=== PATIENT | female | born 1985 | race Two or more races ===

== ENCOUNTER 2024-07-05 13:45 | Emergency (ER) | payer MEDICAID, SELFPAY ==
[2024-07-05 13:46] VITALS: BMI 26.5
[2024-07-05 14:09] VITALS: BP 121/76; PULSE 88; RESP 18; TEMP 36.9; O2SAT 98
--- NOTE | 2024-07-05 14:16 | XR_ITS ---
Examination: Complete OB ultrasound greater than 14 weeks Date and time of exam: July 05, 2024 1540 hrs. Indications: Left-sided pelvic pain beginning 2 weeks ago Findings: Viable intrauterine single fetus with single amniotic sac presentation transverse head maternal left Cardiac motion 155 BPM Placenta anterior grade 1 Umbilical cord insertion 3 vessel seen Amniotic fluid: Normal Cervix 5.7 cm Right ovary 2.7 cm arterial flow D2 0.3 cm arterial flow. Composite estimated gestational age based on BPD, head circumference, abdominal circumference, femur length is 18 weeks 1 day Estimated weight 211 g. Survey of intracranial anatomy, spinal anatomy, abdominal anatomy, four-chamber heart performed with no abnormalities identified. Impression: Viable intrauterine gestation transverse presentation.
[2024-07-05 14:42] LABS: Collection Type, Urine Clean Catch
[2024-07-05 14:55] LABS: Basophils % (Auto) 0 % (0-2.5); Eosinophils # (Auto) 0.1 Thou/mm3 (0.0-0.5); Eosinophils % (Auto) 1 % (0-10); Hematocrit 31.4 % (36.0-46.0); Hemoglobin 10.8 g/dL (12.0-16.0); Immature Granulocytes % (Auto) 0 % (0-0); Immature Granulocytes Auto 0.05 Thou/mm3 (0.00-0.00); Lymphocytes # (Auto) 1.2 Thou/mm3 (1.0-4.8); Lymphocytes % (Auto) 11 % (10-50); Mean Corpuscular HGB Conc 34.4 g/dl (31.0-37.0); Mean Corpuscular Hemoglobin 29.2 pg (25.0-35.0); Mean Corpuscular Volume 85 fL (80-100); Monocytes # (Auto) 0.6 Thou/mm3 (0.0-0.8); Monocytes % (Auto) 6 % (0-12); Neutrophils # (Auto) 9.2 Thou/mm3 (1.8-7.7); Neutrophils % (Auto) 83 % (37-80); Nucleated Red Blood Cell % 0 /100 WBC (0); Platelet Count 229 Thou/mm3 (140-440); RDW Standard Deviation 40.1 fL (36.4-46.3); White Blood Count 11.2 Thou/mm3 (3.6-11.0)
[2024-07-05 15:11] LABS: Bacteria,Urine 1+; Bilirubin,Urine Negative (Negative); Blood,Urine Negative (Negative); Clarity,Urine Turbid (Clear/Hazy); Color,Urine Yellow (Lt Yel-Yel); Culture Indicated,Urine Contaminated; Glucose, Urine Negative (Negative); Hyaline Casts,Urine < 1 /hpf (0-1); Ketones,Urine 1+ (Negative); Leukocyte Esterase,Urine Negative (Negative); Nitrite,Urine Negative (Negative); PH,Urine 6.5 (5.0-7.0); Protein,Urine 1+ (Neg - Trace); RBC,Urine 8 /hpf (0-3); Specific Gravity,Urine 1.027 (1.001-1.035); Squamous Epithelial Cell,Urine 22 /hpf (0-5); Urobilinogen,Urine Negative mg/dL (0.0-1.0); WBC,Urine 7 /hpf (0-5)
[2024-07-05 15:31] LABS: Alanine Aminotransferase 16 U/L (10-49); Albumin, Serum 4.1 gm/dL (3.5-5.0); Albumin/Globulin Ratio 1.3 (1.2-2.2); Alkaline Phosphatase 46 U/L (46-116); Anion Gap 10 (7-16); Aspartate Amino Transferase 23 U/L (0-34); BUN/Creatinine Ratio 13 Ratio (12-20); Bilirubin,Total 0.3 mg/dL (0.3-1.2); Blood Urea Nitrogen 8 mg/dL (9-23); Calcium 9.6 mg/dL (8.3-10.6); Calcium (Corrected) 9.6 mg/dL (8.5-10.1); Carbon Dioxide 21.6 mMol/L (20.0-31.0); Chloride 102 mMol/L (98-107); Creatinine (Component) 0.6 mg/dL (0.6-1.3); Estimated Creatinine Clearance 110.9 mL/min (>60); Globulin 3.2 gm/dL (2.3-3.5); Glucose 99 mg/dL (74-106); Osmolality,Calculated 266 (275-295); Sodium 134 mMol/L (136-145); Total Protein 7.3 gm/dL (5.7-8.2); eGFR > 60 See Note
[2024-07-05 15:50] LABS: Beta HCG,Quantitative 27044 mIU/mL (<5.0)
[2024-07-05 15:51] VITALS: BP 116/77; PULSE 96; RESP 18; TEMP 36.8; O2SAT 99
--- NOTE | 2024-07-05 16:37 | EDNOTE_ITS ---
ED Female Urogenital RME/HPI General Chief complaint: Urogenital-Female Stated complaint: R LOWER ABD PAIN WITH VAGINAL BLEED; 16 WEEKS OB Time Seen by Provider: 07/05/24 13:59 Arrival date/time: 07/05/24 13:45 38-year-old female approximately 16 weeks presents to the emergency department today stating she has not felt any movement. Patient reports no fever nausea or vomiting no headache dizziness weakness Limitations: no limitations Related Data Allergies Allergy/AdvReac Type Severity Reaction Status Date / Time No Known Allergies Allergy Verified 07/05/24 13:49 Review of Systems Review of Systems Systems Reviewed: All systems reviewed, normal except as documented Constitutional Constitutional: Reports system reviewed and no additional complaints, except as documented, Denies fever(s) and Denies headache(s) Eyes Eyes: Reports system reviewed and no additional complaints, except as documented and Denies blurry vision ENT Ears, Nose, Mouth, and Throat: Reports system reviewed and no additional complaints, except as documented, Denies headache(s), Denies nasal congestion and Denies nasal discharge Cardiovascular Cardiovascular: Reports system reviewed and no additional complaints, except as documented, Denies chest pain and Denies dyspnea Respiratory Respiratory: Reports system reviewed and no additional complaints, except as documented, Denies chest congestion, Denies cough and Denies dyspnea Gastrointestinal Gastrointestinal: Reports system reviewed and no additional complaints, except as documented and Denies abdominal pain Genitourinary Genitourinary: Reports system reviewed and no additional complaints, except as documented and Reports abnormal vaginal bleeding Integumentary/Breasts Skin/Breast: Reports system reviewed and no additional complaints, except as documented and Denies rash Neurologic Neurologic: Reports system reviewed and no additional complaints, except as documented, Reports as per HPI and Denies headache(s) Past Medical History Past Medical History CARDIAC: Negative Congestive Heart Failure RESPIRATORY: Negative Chronic Obstructive Pulmonary Disease (COPD) GENITOURINARY: Negative Renal Disease ENDOCRINE: Negative Diabetes Mellitus Type 1 or Diabetes Mellitus Type 2 Social History SMOKING STATUS: Light (< 1 pack/day) ED Exam General Limitations: Present no limitations General appearance: Present alert and in no apparent distress Head Head exam: Present atraumatic, normocephalic and normal inspection Eye Eye exam: Present normal appearance, PERRL and EOMI; Absent conjunctival injection ENT ENT exam: Present normal exam, normal oropharynx and mucous membranes moist Neck Neck exam: Present normal inspection, full ROM and trachea midline Chest Chest inspection: Present normal inspection and symmetric chest wall rise Respiratory Respiratory exam: Present normal lung sounds bilaterally; Absent respiratory distress, wheezes, stridor, accessory muscle use or prolonged expiratory phase Cardiovascular Cardiovascular exam: Present regular rate, normal rhythm and normal heart sounds Abdominal Exam Abdominal exam: Present soft and normal bowel sounds; Absent distention, tenderness, guarding, rebound or rigidity Extremities Exam Extremities exam: Present normal inspection and full ROM Back Exam Back exam: Present normal inspection and full ROM Neurological Exam Neurological exam: Present alert, oriented X3, CN II-XII intact and normal gait Psychiatric Psychiatric exam: Present normal affect and normal mood Skin Skin exam: Present warm, dry, intact and normal color Course Quality Measures none Orders Category Date Time Status US OB >= 14 weeks Fetus Stat Exams 07/05/24 14:16 Completed ABO/RH Type Stat Lab 07/05/24 14:39 Completed Beta HCG,Quantitative Stat Lab 07/05/24 14:39 Completed CBC Stat Lab 07/05/24 14:39 Completed Comprehensive Metabolic Panel Stat Lab 07/05/24 14:39 Completed UA, C/S IF [Urinalysis, C/S if Indicated] Stat Lab 07/05/24 14:37 Completed Vital Signs Vital signs: Vital Signs Temperature 98.5 F 07/05/24 14:09 Pulse Rate 88 07/05/24 14:09 Respiratory Rate 18 07/05/24 14:09 Blood Pressure 121/76 07/05/24 14:09 Pulse Oximetry (%) 98 07/05/24 14:09 Oxygen Delivery Method Room Air 07/05/24 14:09 O2 saturation 98% room air within the limits Urogenital - Female MDM Narrative MDM Narrative:: 38-year-old female approximately 16 weeks presents to the emergency department today stating she has not felt any movement. Patient reports no fever nausea or vomiting no headache dizziness weakness On exam patient well-appearing patient does not appear ill or toxic patient reports no active bleeding no discharge no dysuria Lab work as well as ultrasound obtained Patient appears to have viable at this time Lab work is unremarkable Patient instructed to follow-up with CLOTH COVERER soon as possible for emergent concerns return immediately Patient data External records reviewed:: [facility] previous records Clinical information provided by:: patient Social determinants that could affect healthcare access:: none Patient has the following chronic illnesses:: None How is presenting disease/condition affected by chronic disease/condition?: no chronic disease Evaluation data The following diagnostics were reviewed and interpreted by me:: lab results and radiology exam(s) Lab and/or radiology exams considered but not ordered:: Labs and radiology obtained Interpretation Summary: Reviewed by me Medications / Prescriptions Medications or Prescriptions considered but not ordered:: Given no meds Medication administrations:: Given no meds Consultations Consultation(s) initiated? (list below): No Diagnosis Urogenital Female Differential Diagnosis: urinary tract infection and cystitis Most likely diagnosis given after review of the tests above:: Pelvic pain Admission Indicated Admission indicated?: not indicated Admission Request Was there a request for admission?: No Disposition Plan Disposition Plan: Discharge Discharge Attestation Discharge Attestation: The patient and all family members were given an opportunity to ask questions and understood the discharge instructions. Discharge instructions specifically effects, indications for sooner follow up or return to the emergency department, and the expected course of current diagnosis. Patient condition: Stable Discharge Plan Plan Patient Disposition: HOME (Self Care) Disposition Comment: Stable Problem List Clinical Impression: Pelvic pain affecting Patient/Caregiver Discharge Instructions Education Materials: Medicine for Pain Additional Instructions: Please follow up with your CLOTH COVERER in the next 24-48hrs for any worsening symptoms return here immediately Print Language: Korean Stand Alone Forms: Suzie Award Info., Patient Portal Info Letter PA/KAPIL Supervising Physician BIJU/KAPIL Supervising Physician: Dr. broussard
== END 2024-07-05 17:08 | disposition home or self-care (01) ==
LOC: SERX 17:31
PROVIDERS: Nurse Practitioner Primary Care; Emergency Provider Emergency Medicine
DX: O99.891 Other specified diseases and conditions complicating pregnancy (principal); R10.2 Pelvic and perineal pain; Z3A.16 16 weeks gestation of pregnancy
CPT/HCPCS: 36415; 76805; 80053; 81001; 84702; 85025; 86900; 86901; 99284

== ENCOUNTER 2024-11-12 10:59 | Outpatient (AMB) | payer MEDICAID, SELFPAY ==
--- NOTE | 2024-11-12 11:24 | AMB.OBINITIA ---
Vital Signs 11/12/24 11:40 Height 1.57 m Height Method Stated Weight 76.204 kg Weight Measurement Method Standing Scale BMI 30.9 BP 100/64 Blood Pressure Source Automatic Cuff Blood Pressure Location Right Upper Arm Position Sitting Respiration 17 Pulse 73 Pulse Source Monitor Temp 97.7 F Temp Source Temporal Artery Scan Pulse Oximetry (%) 97 Oxygen Delivery Method Room Air Allergies/Home Meds Allergies & Medications Allergies No Known Allergies Allergy (Verified 11/12/24 11:43) Medication Reconciliation No Known Home Medications 11/12/24 [History Confirmed 11/12/24] Intake Visit Data Collection New Patient or Established: Established Patient (seen at [facility] within 3 years) Reason for Visit:: OBI TRANSFER Seen by Clinical Staff ONLY (RN/MA): No Volleyball Player Required: No Do You Feel Safe at Home: Yes Authorities Contacted: N/A PCP or OBGYN visit in last 3 months: Yes Date of Last PCP or OBGYN visit: 07/05/24 Hx Now: Yes Are you currently on any form of Control: No Pain Present Currently: No Pain Scale Used: Cantor-Torres/Numerical Pain scale:: 0 Smoking Status Smoking Status: Light (< 1 pack/day) Cessation Counseling Provided: LUCINDA was advised that quitting smoking is the single most important factor to protect the health of themselves and their family. Discussed the benefits of quitting smoking with patient. Encouraged patient to quit smoking and provided Cessation assistance materials and resources. Tobacco Use: Cigarette Years smoked: 5 Are you interested in Quitting?: Yes Would you like additional Smoking Cessation Counseling?: Yes Questionnaires Covid-19 Vaccine Questionnaire Has patient been vacinated for Covid-19 Have you been vacinated for Covid-19: No PHQ-9 PHQ-2 Over the last 2 weeks, how often have you been bothered by any of the following problems? 1. Little interest or pleasure in doing things: not at all 2. Feeling down, depressed, or hopeless: not at all Total score: 0 PHQ-9 3. Trouble falling or staying asleep, or sleeping too much: Not at all 4. Feeling tired or having little energy: Not at all 5. Poor appetite or overeating: Not at all 6. Feeling bad about yourself - or that you are a failure or have let yourself or your family down: Not at all 7. Trouble concentrating on things, such as reading the newspaper or watching television: Not at all 8. Moving or speaking so slowly that other people could have noticed? - Or the opposite - being so fidgety or restless that you have been moving around a lot more than usual: not at all 9. Thoughts that you would be better off or of hurting yourself in some way: Not at all Total score: 0 If you checked off any problems, how difficult have these problems made it for you to do your work, take care of things at home, or get along with other people?: not difficult at all Source: Developed by Drs. Cipriano Blanchard, Cherise Morrison, Gonzalo Dixon and colleagues, with an educational zora from [employer] Depression screen completed yes Social History Living Situation History Marital Status: Single Lives With: Family Housing: House Tobacco History Smoking Status: Light (< 1 pack/day) Second Hand Smoke Exposure: No Alcohol History Alcohol Intake: Never Domestic Abuse History Do You Feel Safe at Home: Yes History of Present Illness HPI Narrative Lucinda Burgess is a 38-year-old Citizen Of [place]-speaking female transferring care at 36 weeks and 5 days gestation. She has a history of 3 previous sections, including one resulting in stillbirth, and is currently being treated for gestational diabetes. Patient reports adhering to a diet-controlled regimen for her gestational diabetes, monitoring blood sugar levels four times daily, and denies need for medication or insulin. She mentions experiencing movement and had an ultrasound today estimating weight at 7 pounds 10 ounces (3446 grams). Patient expresses concern about her previous loss at approximately 39 weeks gestation, where she was sent for a scheduled section but upon return, the baby was not breathing. This experience has heightened her anxiety about the current . Obstetric history includes G4 T2 L2, with current at 33 weeks 1 day based on LMP and ultrasound, estimated due date December 05, 2024. Previous pregnancies include 3 sections, with the 2nd resulting in stillbirth. Medical history includes gestational diabetes, currently diet-controlled. Surgical history includes three sections. Patient is taking vitamins and is immune to rubella. Review of systems positive for increased appetite. Diagnostic Test Results and Labs: - Ultrasound (07/05/2024): Consistent with 18 weeks and 7 days gestation, NAIMA 12/05/2024 - Urine culture (08/05/2024): Positive (coagulase-negative staph) - NiPT (08/06/2024): Negative - Hepatitis B (08/06/2024): Negative - Antibody screen (08/06/2024): Negative - HIV (08/06/2024): Negative - RPR (08/06/2024): Non-reactive - Rubella (08/06/2024): Immune - Blood type (08/06/2024): AB positive - CBC (08/06/2024): Hemoglobin 10.4 g/dL, Platelets 245 - Detailed anatomy ultrasound (09/17/2024): Within normal limits - Cervical length (09/17/2024): 5.13 cm - position (09/17/2024): Breech - Uterus and adnexa (09/17/2024): Normal - Placenta (09/17/2024): Anterior fundal, normal appearance without suspicion for accreta - Ultrasound (11/12/2024): Estimated weight 3446 grams (7 pounds 10 ounces), heart rate 135 bpm CONTRACTS ADVISOR: Past Medical History Past Medical History: No Hx Renal Disease, No Hx Diabetes Mellitus Type 1 and No Hx Diabetes Mellitus Type 2 OB Initial Visit Menstrual History Menstrual reliability: definite Flow: normal Menstrual regularity: regular Monthly: Yes Age at menarche: 12 On control pills at conception: No OB History : 4 Para: 2 Hx # Pregnancies: 0 Hx Total # of Abortions (Spontaneous & Elective): 1 # of Living Children: 2 Delivery History 1st : Child's name: PACO ROTHMAN date: 10/21/00 sex: male Gestational age at delivery (weeks): 39 Delivery type: weight (lbs): 3175.147 g History of depression before or after : No 2nd : Child's name: NATHANAEL ROTHMAN date: 01/23/10 sex: female Gestational age at delivery (weeks): 38 Delivery type: weight (lbs): 3175.147 g History of depression before or after : Yes Infection History & Risk Evaluation History of STDs: none HIV risk evaluation: low risk Hepatitis B risk evaluation: low risk Patient or partner has history of Genital Herpes: No Varicella/chicken pox status: unknown Genetic Screening & History Genetic Screening/Teratology Counseling - Includes patient, baby's father, or anyone in either family with: 1. Patient's age 35 years or older as of estimated date of delivery: Yes 2. Thalassemia (Indonesian, Guamanian, Mediterranean, or Background); MCV less than 80: No 3. Neural Tube Defect (Meningomyelocele, Spina Bifida, or Anencephaly): No 4. Congenital Heart Defect: No 5. Down Syndrome: No 6. Santi-Sachs (Ashkenazi Scientologist, Cajun, Hungarian [place]): No 7. Nikita Disease (Ashkenazi Scientologist): No 8. Familial Dysautonomia (Ashkenazi Scientologist): No 9. Sickle Cell Disease or Trait (): No 10. Hemophilia or other blood disorders: No 11. Muscular Dystrophy: No 12. Cystic Fibrosis: No 13. Gove's Chorea: No 14. Mental Retardation/Autism: No 15. Other inherited genetic or chromosomal disorder: No 16. Maternal Metabolic Disorder (EG,TYPE 1 Diabetes, PKU): No 17. Patient or baby's father had a child with defects not listed above: No 18. Recurrent loss or a stillbirth: No 19. Medications (including supplements, vitamins, herbs or otc drugs)/illicit/recreational drugs/alcohol since last menstrual period: No 20. Any other: No Infection History 1. Live with someone with TB or exposed to TB: No 2. Rash or viral illness since last menstrual period: No 3. Hepatitis B,C: No Other (see comments) Source: [employer] Exam General General Appearance: alert, in no apparent distress and healthy appearing Head Head exam: atraumatic Neck Neck exam: Present normal inspection and trachea midline Chest Chest inspection: Present normal inspection and symmetric chest wall rise External exam: Present normal external exam; Absent tenderness Neuro Neurological exam: Present oriented X3 Psych Psychiatric exam: Present normal affect and normal mood Office Procedures OB Clinic LOC & Office Proc's Nursing/Assessment Patient Status: Established Patient OB Clinic Nursing Assessment: Medication Reconciliation, Update PMH in EMR and Vital Signs OB Clinic Coordination of Care: Complex Care and Chronic Disease 1-5, Consent,records obtained, informed consent, Education Simp Pt/Fam and Staff clarify orders Special Needs: Heart tones Established Patient Charge Established Patient Point Assignment: 115 Established Patient Point Charge: EP Level 3 (80-115) Assessment & Plan Diagnosis / Problem List (1) Supervision of high risk , unspecified, third trimester: Status: Acute (2) Maternal care for low transverse scar from previous delivery: Status: Acute (3) History of stillbirth in currently patient: Status: Acute Plan , 36 weeks and 5 days gestation: - Patient is 38-year-old at 36 weeks and 5 days gestation. - History significant for 3 prior sections and one stillbirth at 39 weeks. - Recent maternal- consult showed normal anatomy survey with cervical length of 5.13 cm. - Fetus in breech presentation with normal uterus, adnexa, and anterior fundal placenta. - Recent ultrasound estimates weight at 3446 grams (7 pounds 10 ounces). - Schedule section for 11/21/2024 or 11/22/2024 (38 weeks gestation). - Initiate twice weekly monitoring at the hospital (non-stress test and ultrasound). - Continue weekly office visits. - Patient to perform kick counts 3 times daily. - Instruct patient to present to hospital immediately for decreased movement. - Follow up in 1 week. Gestational diabetes mellitus: - Patient managing gestational diabetes with diet control. - Recent blood glucose log shows fasting values ranging from 86-103 mg/dL. - Continue current diet control measures. - Reinforce importance of portion control and avoiding sweet foods. - Encourage regular physical activity as tolerated. - Continue home blood glucose monitoring 4 times daily. - Review blood glucose log at next visit. Advanced maternal age: - Patient is 38 years old, classified as advanced maternal age. - Continue close monitoring of . - Addressed through management of other -related issues.
[2024-11-12 11:40] VITALS: BP 100/64; PULSE 73; RESP 17; TEMP 36.5; O2SAT 97; BMI 30.9
== END 2024-11-12 11:59 | disposition home or self-care (01) ==
LOC: HODSOBC 10:59
PROVIDERS: Supervising Provider Obstetrics & Gynecology; Visit Provider Obstetrics & Gynecology
DX: O09.523 Supervision of elderly multigravida, third trimester (principal); O09.293 Supervision of pregnancy with other poor reproductive or obstetric history, third trimester; O34.211 Maternal care for low transverse scar from previous cesarean delivery; O24.410 Gestational diabetes mellitus in pregnancy, diet controlled; O99.333 Smoking (tobacco) complicating pregnancy, third trimester; Z3A.36 36 weeks gestation of pregnancy; F17.210 Nicotine dependence, cigarettes, uncomplicated; Z71.6 Tobacco abuse counseling
CPT/HCPCS: 99213; G0463

== ENCOUNTER 2024-11-17 13:39 | Outpatient (AMB) | payer MEDICAID, SELFPAY ==
[2024-11-17 13:59] VITALS: BP 106/70; PULSE 83; RESP 17; TEMP 36.3; O2SAT 96; BMI 30.8
--- NOTE | 2024-11-17 13:59 | OBCLNT_ITS ---
Vital Signs 11/17/24 13:59 Height 1.57 m Height Method Measured Weight 75.92 kg Weight Measurement Method Standing Scale BMI 30.8 BP 106/70 Blood Pressure Source Automatic Cuff Blood Pressure Location Right Upper Arm Position Sitting Respiration 17 Pulse 83 Pulse Source Monitor Temp 97.4 F Temp Source Temporal Artery Scan Pulse Oximetry (%) 96 Oxygen Delivery Method Room Air Allergies/Home Meds Allergies & Medications Allergies No Known Allergies Allergy (Verified 11/17/24 14:01) Medication Reconciliation No Known Home Medications 11/12/24 [History Confirmed 11/17/24] Intake Visit Data Collection New Patient or Established: Established Patient (seen at [facility] within 3 years) Reason for Visit:: OBC Consent obtained for Telemed Visit: No Seen by Clinical Staff ONLY (RN/MA): No Office Manager Receptionist Required: No Do You Feel Safe at Home: Yes Authorities Contacted: N/A PCP or OBGYN visit in last 3 months: Yes Date of Last PCP or OBGYN visit: 11/12/24 Hx Now: Yes Are you currently on any form of Control: No Pain Present Currently: Yes Pain Location: Abdomen Pain scale:: 4 Smoking Status Smoking Status: Light (< 1 pack/day) Cessation Counseling Provided: LUCINDA was advised that quitting smoking is the single most important factor to protect the health of themselves and their family. Discussed the benefits of quitting smoking with patient. Encouraged patient to quit smoking and provided Cessation assistance materials and resources. Tobacco Use: Cigarette Years smoked: 10 Are you interested in Quitting?: Yes Would you like additional Smoking Cessation Counseling?: Yes Questionnaires Covid-19 Vaccine Questionnaire Has patient been vacinated for Covid-19 Have you been vacinated for Covid-19: No PHQ-9 PHQ-2 Over the last 2 weeks, how often have you been bothered by any of the following problems? 1. Little interest or pleasure in doing things: not at all PHQ-9 8. Moving or speaking so slowly that other people could have noticed? - Or the opposite - being so fidgety or restless that you have been moving around a lot more than usual: not at all Source: Developed by Drs. Cipriano Blanchard, Cherise Morrison, Gonzalo Dixon and colleagues, with an educational zora from [employer]. 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 Patient has a history of prior delivery. Patient reports contractions starting from upper abdomen and pulling down, occurring occasionally. Reports good movement. No mention of leakage of fluid or vaginal bleeding. Denies NAILS, VC, and epigastric pain. - Lucinda Burgess is a 38-year-old female at 37 weeks and 3 days gestation presenting for a visit. - Patient is scheduled for a repeat on November 26, 2024 at 7:30 AM. - Reports active movement. - Denies contractions or other issues. - Describes recent symptoms: - Sharp, pulling sensations in lower abdomen - Occurs at night - Improves with rest - Experienced for the past 2 days - No reported changes in overall health status or functioning. Care OB Visit Log OB Flowsheet Initial Weight: Not Recorded Date -?-?-?-?-?-?-?-?-?-?-?-?- EGA Weight BP Alb Glu CTX Pres Fundal ht FHR Mov Dilation Station Effacement Hx Notes Visit Note 11/12/24 -?-?-?-?-?-?-?-?-?-?-?-?- 36w 5d 76.204 kg 100/64 36 135 active at 36w5d, NAIMA 12/05/24. Transfer of care. Hx 3 prior C/S, 1 stillbirth at 39w. GDM diet-controlled (fasting BG 86-103). Reports good FM. Current US shows EFW 3446g (7lb 10oz), breech presentation. FHR 135 Gabriel edule C/S 11/21 or 11/22/24 (38w), BIW NST/US at hospital, weekly visits, kick counts TID, continue diet control for GDM, FU 1 week. Precautions for decreased FM reviewed. 11/17/24 -?-?-?-?-?-?-?-?-?-?-?-?- 37w 3d 75.92 kg 106/70 occasional cephalic 38 141 active No CTX/LOF/VB, good FM. Reports sharp pulling sensations at night x2 days, improve with rest, possibly prodromal CTX. FHR 141. Scheduled C/S for 11/26 at 7:30 AM; NPO after 10 PM, check in 5:30 AM via ER gate. No further appts; advised L&D eval if symptoms worsen NAIMA Calculator Estimated Delivery Date Method Current WG Current Estimate 12/05/24 Ultrasound #1 37w 3d Other Estimates 01/01/25 LMP (Certain) 33w 4d Specific Issue/Plans Diagnostic Test Results and Labs: - Ultrasound (07/05/2024): Consistent with 18 weeks and 7 days gestation, NAIMA 12/05/2024 - Urine culture (08/05/2024): Positive (coagulase-negative staph) - NiPT (08/06/2024): Negative - Hepatitis B (08/06/2024): Negative - Antibody screen (08/06/2024): Negative - HIV (08/06/2024): Negative - RPR (08/06/2024): Non-reactive - Rubella (08/06/2024): Immune - Blood type (08/06/2024): AB positive - CBC (08/06/2024): Hemoglobin 10.4 g/dL, Platelets 245 - Detailed anatomy ultrasound (09/17/2024): Within normal limits - Cervical length (09/17/2024): 5.13 cm - position (09/17/2024): Breech - Uterus and adnexa (09/17/2024): Normal - Placenta (09/17/2024): Anterior fundal, normal appearance without suspicion for accreta - Ultrasound (11/12/2024): Estimated weight 3446 grams (7 pounds 10 ounces), heart rate 135 bpm Exam General General Appearance: alert, in no apparent distress and healthy appearing Head Head exam: atraumatic Neck Neck exam: Present normal inspection and trachea midline Chest Chest inspection: Present normal inspection and symmetric chest wall rise External exam: Present normal external exam; Absent tenderness Neuro Neurological exam: Present oriented X3 Psych Psychiatric exam: Present normal affect and normal mood Office Procedures OB Clinic LOC & Office Proc's Nursing/Assessment Patient Status: Established Patient OB Clinic Nursing Assessment: Medication Reconciliation, Update PMH in EMR and Vital Signs OB Clinic Coordination of Care: Complex Care and Chronic Disease 1-5, Consent,records obtained, informed consent, 4+ Authorizations needed, Lab and Imaging orders and Results/Orders obtained Special Needs: Heart tones Established Patient Charge Established Patient Point Assignment: 135 Established Patient Point Charge: EP Level 4 (120-155) Assessment & Plan Diagnosis / Problem List (1) History of stillbirth in currently patient: Status: Acute (2) Supervision of high risk , unspecified, third trimester: Status: Acute (3) Maternal care for low transverse scar from previous delivery: Status: Acute Plan Problem List - at 37 weeks and 3 days - Scheduled repeat section - Intermittent contractions Assessment 38-year-old female at 37 weeks and 3 days gestation presenting for visit. Patient reports intermittent sharp, pulling sensations in the lower abdomen, particularly at night, which may indicate possible contractions. movement is present and normal. heart rate is 141 bpm, which is within normal range. No reported persistent contractions or other concerning symptoms at this time. Patient is scheduled for repeat section on November 26 at 38 weeks and 4 days gestation. Plan - Scheduled for on November 26 at 7:30 AM - Patient to check in at 5:30 AM on the day of surgery - Enter through air gate for registration - No food or drink after 10 PM the night before surgery - If experiencing persistent pulling sensations or contractions, patient should come to labor and delivery for evaluation - No further appointments scheduled; next encounter will be at the hospital for - Post-operative follow-up appointment to be scheduled after the 1. Progress Reviewed gestational age, growth, and heart rate. Planned frequent visits (every 2 weeks until 36 weeks, then weekly). 2. Instructed patient to monitor movements and report decreases imme diately. 3. Testing Counseled on routine third-trimester labs per guidelines. Discussed potential need for ultrasound or monitoring based on risk factors. 4. Preeclampsia Precaution Educated on preeclampsia signs: severe headache, vision changes, right upper quadrant pain, sudden swelling. Advised urgent reporting of symptoms and discussed blood pressure monitoring if high risk. 5. Labor Precautions Reviewed labor signs: regular contractions, pelvic pressure, back pain, bleeding, or fluid leakage. Instructed to seek immediate care for these symptoms. 6. Lifestyle and Delivery Preparation Reinforced vitamins, nutrition, and safe activity. Discussed plan, pain management, and . Advised on labor preparation (e.g., hospital bag) and expectations. 7. Psychosocial Support Assessed emotional well-being and offered resources for mental health or parenting support.
== END 2024-11-17 14:05 | disposition home or self-care (01) ==
LOC: HODSOBC 13:39
PROVIDERS: PCP Obstetrics & Gynecology; Referring Provider Obstetrics & Gynecology; Supervising Provider Obstetrics & Gynecology; Visit Provider Obstetrics & Gynecology
DX: O09.523 Supervision of elderly multigravida, third trimester (principal); O09.293 Supervision of pregnancy with other poor reproductive or obstetric history, third trimester; O34.211 Maternal care for low transverse scar from previous cesarean delivery; Z3A.37 37 weeks gestation of pregnancy; O99.333 Smoking (tobacco) complicating pregnancy, third trimester; F17.210 Nicotine dependence, cigarettes, uncomplicated; Z71.6 Tobacco abuse counseling
CPT/HCPCS: 99214; G0463

== ENCOUNTER 2024-11-26 09:44 | Inpatient (IN) | payer MEDICAID, SELFPAY ==
[2024-11-26] VITALS (42 sets, daily range): BP systolic 0–123; BP diastolic 0–79; PULSE 60–106; RESP 12–23; TEMP 36.5–36.8; O2SAT 86–100; BMI 30.3
[2024-11-26] MEDS: RINGERS LACTATED 1000 ML 1,000 ML 100 ML IV ×2 (09:55→12:05)
[2024-11-26 10:58] LABS: Basophils # (Auto) 0.0 Thou/mm3 (0.0-0.2); Basophils % (Auto) 0 % (0-2.5); Eosinophils # (Auto) 0.1 Thou/mm3 (0.0-0.5); Eosinophils % (Auto) 1 % (0-10); Hematocrit 33.3 % (36.0-46.0); Hemoglobin 11.5 g/dL (12.0-16.0); Immature Granulocytes Auto 0.03 Thou/mm3 (0.00-0.00); Lymphocytes # (Auto) 1.1 Thou/mm3 (1.0-4.8); Lymphocytes % (Auto) 14 % (10-50); Mean Corpuscular HGB Conc 34.5 g/dl (31.0-37.0); Mean Corpuscular Hemoglobin 30.2 pg (25.0-35.0); Mean Corpuscular Volume 87 fL (80-100); Monocytes # (Auto) 0.7 Thou/mm3 (0.0-0.8); Monocytes % (Auto) 9 % (0-12); Neutrophils # (Auto) 6.0 Thou/mm3 (1.8-7.7); Neutrophils % (Auto) 76 % (37-80); Nucleated Red Blood Cell # 0.00 Thou/mm3 (0.00-0.00); Nucleated Red Blood Cell % 0 /100 WBC (0); Platelet Count 169 Thou/mm3 (140-440); RDW Standard Deviation 42.3 fL (36.4-46.3); Red Blood Count 3.81 Miln/mm3 (4.00-5.20); White Blood Count 7.9 Thou/mm3 (3.6-11.0)
--- NOTE | 2024-11-26 11:05 | ESHP_ITS ---
Documentation for date of: 11/26/24 OB Labor/Induct. HPI History of Present Illness Chief complaint: Repeat : 4 pregnancies: 0 Living children: 2 History of Abortions: Spontaneous and Elective: 1 History of sections: Yes (x4) NAIMA: 12/05/24 History of present illness: Lucinda Burgess is a 38-year-old female, 4, para 2102, presenting for a repeat scheduled section at 38 weeks and 5 days gestation. She has a history of three previous sections and a prior stillbirth at 39 weeks. The patient started care at [facility]. Her risk factors include previous sections and gestational diabetes. On presentation, Lucinda reports no complaints. She notes good movement and denies any leakage of fluid or vaginal bleeding. Her current is at 38 weeks and 5 days gestation, and she is scheduled for a repeat section prior to 39w due to GDM and history of IUFD at 39w. She has a history of 3 previous sections and a stillbirth at 39 weeks. The patient has gestational diabetes in the current . Her surgical history includes three previous sections. Patient denies fever, chills, fatigue, vaginal bleeding, and leakage of fluid. Labs Labs: Positive: Rubella Titre, Negative: RPR, Hepatitis B, HIV and Group Beta Strep and Unknown: Chlamydia, Gonorrhea, Herpes Type 1, Herpes Type 2 and Covid-19 Past Medical History Surgical History SURGICAL: Positive Section (x4) Meds Home Medications and Allergies Home Medications ?Medication ?Instructions ?Recorded ?Confirmed ?Type aspirin 81 mg tablet,delayed 81 mg PO QDAY 11/26/24 History release ferrous sulfate 325 mg (65 mg 325 mg PO QDAY 11/26/24 11/26/24 History iron) tablet (FeroSul) vit no.95-ferrous 1 tab PO QDAY 11/26/2411/16 History fumarate 28 mg-folic acid 800 mcg tablet () Allergies Allergy/AdvReac Type Severity Reaction Status Date / Time No Known Allergies Allergy Verified 11/26/24 11:06 OB Exam Physical Exam Vital signs: Pulse BP Pulse Ox 104 H 0/0 L 97 11/26/24 10:11 11/26/24 10:42 11/26/24 11:05 Constitutional Constitutional: no acute distress Routine HEENT Exam Head: Present normocephalic and atraumatic Eye: Present EOMI and PERRL ENT: Present mucous membranes moist Routine Neck Exam Neck: Present supple and trachea midline Routine Cardiovascular Exam Cardiovascular: Present RRR Routine Abdominal Exam Abdominal: Present soft and normoactive bowel sounds Detailed Labor and Delivery Exam Baseline heart rate: 145 monitor accelerations: 15x15 monitor decelerations: None 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 (6-10) Routine Extremities Exam Extremities: Present full ROM Routine Skin Exam Skin: Present intact, dry and warm Routine Neurological Exam Neurological: Present alert, oriented X3 and CN II-XII intact Routine Psychiatric Exam Psychiatric: Present normal affect and normal thought process OB Results Labs 11/26/24 10:20 OB Assessment & Plan Assessment and Plan (1) History of stillbirth in currently patient: Status: Acute (2) Supervision of high risk , unspecified, third trimester: Status: Acute (3) Maternal care for low transverse scar from previous delivery: Status: Acute Assessment and plan: Repeat Section: - Admit to inpatient for repeat . - Obtain consent for repeat section scheduled for 12:30. - Finger stick blood glucose monitoring. - Labs: CBC, type and cross-match 2 units, pre-eclampsia panel, RPR. - IV access with Lactated Ringer's at 125 mL/hour. - Administer cefazolin 2g prior to incision. - Administer pre-op medications as per protocol: ? Famotidine (Pepcid) ? Sodium citrate (Bicitra) - Apply sequential compression devices (SCDs) for DVT prophylaxis. Surgical Counseling General risks associated with surgery and anesthesia. Specific risks related to repeat section.
[2024-11-26 11:28] LABS: Syphilis Nonreactive (Nonreactive)
[2024-11-26] MEDS: METOCLOPRAMIDE INJ 5 MG/ML VIAL 2 ML 10 MG IVP (12:05)
[2024-11-26] MEDS: FAMOTIDINE INJ 10 MG/ML VIAL 2 ML 20 MG IV (12:05)
[2024-11-26 13:18] LABS: Amphetamine/Metham Scrn,Ur OB Negative (Negative); Benzoylecgonine Screen, Ur OB Negative (Negative); Opiate Screen,Urine OB Negative (Negative); THC Screen,Urine OB Negative (Negative)
--- NOTE | 2024-11-26 14:06 | PD.GYNPROC ---
Operative Note - MEDICAL TECHNOLOGIST GENERALIST Procedure Date of procedure: 11/26/24 Procedure Performed: Low-transverse section excision of scar Indication: Previous section x 3 History of demise at 39 weeks and prior GDM A1 Post-Op diagnosis: Same as preop Anesthesia type: Spinal Procedure description: Informed consent was obtained. The patient was brought to the operating room and identified using two patient identifiers. She was placed in the supine position, and spinal anesthesia was administered without complication. After confirming adequate anesthesia, the abdomen and perineum were prepped and draped in the usual sterile fashion. A Sousa catheter was inserted for continuous bladder drainage. A low transverse Pfannenstiel skin incision was made and deepened through subcutaneous tissue to the rectus fascia. A 2 cm strip of skin scar was excised. The fascia was incised transversely and dissected off the underlying rectus muscles superiorly and inferiorly. The rectus bellies were , and the peritoneum was entered bluntly. An Keaton O-ring retractor was placed to enhance exposure. Upon entering the abdominal cavity, the prior uterine scar was excised using the Bovie to expose fresh tissue margins. The bladder flap was developed and reflected inferiorly. A low transverse uterine incision (Morteza Ortega) was made with a scalpel and extended bluntly. The amniotic membranes were ruptured, and clear fluid was released. The fetus, in vertex presentation, was delivered atraumatically. A single loop of nuchal cord was identified and reduced. The shoulders and body were delivered smoothly with gentle fundal pressure. The umbilical cord was doubly clamped and cut, and the infant was handed to the team. Cord gases were obtained. The placenta was delivered spontaneously with gentle traction. The uterine cavity was cleared of clots and membranes. Multiple sites of bleeding were noted along the hysterotomy and were controlled with multiple fijwqf-nj-lutot sutures. Additional hemostasis was achieved using VHF. The hysterotomy was closed in two layers using 0 Vicryl in a running locked and imbricating fashion. Hemostasis was confirmed. The Keaton retractor was removed. The peritoneum and rectus muscles were reapproximated. The fascia was closed using 0 PDS in a running fashion. The subcutaneous tissue was irrigated and inspected. The skin was closed using 4-0 Monocryl in a subcuticular fashion. The patient was cleaned, undraped, and transferred to the recovery room in stable and awake condition. The procedure was well tolerated. All sponge, instrument, and laparotomy counts were correct ?2. Estimated blood loss (ml): 750 Findings: Vertex presentation Clear (uramaniotic) fluid Single loop of nuchal cord Prior uterine scar excised with Bovie Bleeding from hysterotomy requiring multiple [id number] sutures Hemostasis achieved using VHF and suture ligation Uterus and adnexa grossly normal Diagnosis Discharge Diagnosis (1) History of stillbirth in currently patient: Status: Acute (2) Supervision of high risk , unspecified, third trimester: Status: Acute (3) Maternal care for low transverse scar from previous delivery: Status: Acute Problem List Completed Was Problem List Reviewed/Reconciled?: Yes
--- NOTE | 2024-11-26 14:07 | PD.LDDELS ---
Data ([place]) Data Hx Section: Yes (x4) : 4 : 0 Livin Abortions: Spontaneous & Theraputic: 1 Delivery Data ([place]) Labor Data Induction/Augmentation Agent: None ROM date: 11/26/24 ROM time: 13: Amniotic membrane rupture type: Artificial Amniotic fluid description: Clear Delivery Data Wilder delivery date: 11/26/24 delivery time: 13: Placenta delivery date: 11/26/24 Placenta delivery time: 13: Delivered by: Stanton Anders Delivery nurse: Crescencio Reina RN [place] nurse: Liudmila Rodriguez RN Pen Ruler Operator at delivery: No Support person(s) at delivery: sister of pt Delivery Method Delivery method: Low Transverse Presentation: Vertex Anesthesia Type Anesthesia Type: None Anesthesia type: Spinal Placenta Placenta delivery description: Manual Removal Cord blood sent to lab: Yes cord blood collection: Cord Blood Type Episiotomy Episiotomy description: None Umbilical Cord cord description: 3 Vessels Data ([place]) Data Wilder's gender: Male Identification band number: [id number] weight (gms): 3660 g Weight (pounds): 8 lbs and 1.1 ozs Wilder length: 50.8 cm 1 minute: 8 5 minutes: 8 10 minutes: 9
[2024-11-26] MEDS: OXYTOCIN in NS 20 units 20 UNIT/1,000 ML BAG 125 UNIT IV ×2 (14:21→22:25)
[2024-11-26] MEDS: KETOROLAC INJ 30 MG/ML VIAL IVP (21:17)
[2024-11-26] MEDS: ONDANSETRON INJ 2 MG/ML INJ 2 ML 4 MG IV (21:18)
[2024-11-27] MEDS: KETOROLAC INJ 30 MG/ML VIAL IVP (03:28)
[2024-11-27 03:50] VITALS: BP 94/59; PULSE 77; RESP 18; TEMP 36.4; O2SAT 95
[2024-11-27 06:14] LABS: Basophils # (Auto) 0.0 Thou/mm3 (0.0-0.2); Basophils % (Auto) 0 % (0-2.5); Eosinophils # (Auto) 0.1 Thou/mm3 (0.0-0.5); Eosinophils % (Auto) 1 % (0-10); Hematocrit 28.9 % (36.0-46.0); Hemoglobin 9.8 g/dL (12.0-16.0); Immature Granulocytes Auto 0.04 Thou/mm3 (0.00-0.00); Lymphocytes # (Auto) 1.1 Thou/mm3 (1.0-4.8); Lymphocytes % (Auto) 11 % (10-50); Mean Corpuscular HGB Conc 33.9 g/dl (31.0-37.0); Mean Corpuscular Hemoglobin 30.2 pg (25.0-35.0); Mean Corpuscular Volume 89 fL (80-100); Monocytes # (Auto) 1.1 Thou/mm3 (0.0-0.8); Monocytes % (Auto) 11 % (0-12); Neutrophils # (Auto) 7.8 Thou/mm3 (1.8-7.7); Neutrophils % (Auto) 76 % (37-80); Nucleated Red Blood Cell # 0.00 Thou/mm3 (0.00-0.00); Nucleated Red Blood Cell % 0 /100 WBC (0); Platelet Count 133 Thou/mm3 (140-440); RDW Standard Deviation 44.0 fL (36.4-46.3); Red Blood Count 3.25 Miln/mm3 (4.00-5.20); White Blood Count 10.2 Thou/mm3 (3.6-11.0)
[2024-11-27 07:26] VITALS: BP 100/63; PULSE 79; RESP 18; TEMP 36.5; O2SAT 98
[2024-11-27] MEDS: HYDROcodone/APAP 5/325 TABLET 1 TAB PO ×3 (07:39→20:03)
[2024-11-27] MEDS: DOCUSATE SOD 100 MG CAPSULE PO (07:39)
[2024-11-27] MEDS: IBUPROFEN TAB 400 MG TABLET 800 MG PO (09:36)
--- NOTE | 2024-11-27 10:53 | PD.LDPPPRG ---
Subjective Subjective Interval history: POD#1 s/p repeat LTCS , doing well , ambulating , feels like passing gas but not yet No nausea or vomiting \ pain is manageable , lochia light and not dizzy , no headcahe or chest pain or SOB Exam Vital Signs Temp Pulse Resp BP Pulse Ox O2 Del Method 97.7 F 79 18 100/63 98 Room Air 11/27/24 07:26 11/27/24 07:26 11/27/24 07:26 11/27/24 07:26 11/27/24 07:26 11/27/24 07:26 Narrative Exam patient looks good Alertx 3 and oriented not passed flatus yet no nausea or vomiting and lochia mild and tolerating clear liquids baby on formula Constitutional Constitutional: no acute distress Comments: Routine post op care/ patient is doing well Routine Respiratory Exam Respiratory: Present chest non-tender, lungs clear, normal breath sounds, no resp distress and CTA bilaterally Routine Cardiovascular Exam Cardiovascular: Present RRR Routine Abdominal Exam Abdominal: Present soft and normoactive bowel sounds Comments: no guarding appropriate tenderness Dressing clean and dry Routine Extremities Exam Extremities: Present full ROM and pulses intact Comments: no calf tenderness and mild edema Routine Neurological Exam Neurological: Present alert, oriented X3, CN II-XII intact, normal reflexes, vision grossly intact and normal speech Routine Psychiatric Exam Psychiatric: Present normal affect, normal thought process and cooperative Objective Labs 11/27/24 04:38 Labs: Laboratory Results - last 24 hr 11/26/24 11/26/24 11/26/24 10:20 11:27 12:30 WBC 7.9 RBC 3.81 L Hgb 11.5 L Hct 33.3 L MCV 87 MCH 30.2 MCHC 34.5 RDW Std Deviation 42.3 Plt Count 169 Neut % (Auto) 76 Lymph % (Auto) 14 [place] % (Auto) 9 Eos % (Auto) 1 Baso % (Auto) 0 Neut # (Auto) 6.0 Lymph # (Auto) 1.1 [place] # (Auto) 0.7 Eos # (Auto) 0.1 Baso # (Auto) 0.0 Immature Gran # (Auto) 0.03 H Absolute Nucleated RBC 0.00 Immature Gran % 0 Nucleated RBC % 0 Urine Opiates Screen Negative U Amphetamin/Meth Scrn Negative U Cocaine Metab Screen Negative U Marijuana (THC) Screen Negative Syphilis Serology Nonreactive Blood Type AB Positive Antibody Screen NEGATIVE Blood Bank Wristband ID Yes 11/27/24 04:38 WBC 10.2 RBC 3.25 L Hgb 9.8 L Hct 28.9 L MCV 89 MCH 30.2 MCHC 33.9 RDW Std Deviation 44.0 Plt Count 133 L D Neut % (Auto) 76 Lymph % (Auto) 11 [place] % (Auto) 11 Eos % (Auto) 1 Baso % (Auto) 0 Neut # (Auto) 7.8 H Lymph # (Auto) 1.1 [place] # (Auto) 1.1 H Eos # (Auto) 0.1 Baso # (Auto) 0.0 Immature Gran # (Auto) 0.04 H Absolute Nucleated RBC 0.00 Immature Gran % 0 Nucleated RBC % 0 Urine Opiates Screen U Amphetamin/Meth Scrn U Cocaine Metab Screen U Marijuana (THC) Screen Syphilis Serology Blood Type Antibody Screen Blood Bank Wristband ID Impressions Impression: Hb drpo from 11.5 to 9.8 appropriate for post op VSS / doing well will advance diet once passes flatus continue present plan Assessment & Plan Problem List (1) History of stillbirth in currently patient: Problem details: patient had a live this and today is POD1 Status: Acute Assessment and plan: doing well and postop (2) Supervision of high risk , unspecified, third trimester: Problem details: delivered POD #1 and PPD #1 Status: Acute (3) Maternal care for low transverse scar from previous delivery: Problem details: Had a repeat LTCS on 11/26/2024 Status: Acute Assessment Comment Assessment comment: routine Post op care and care Time Spent With Patient Time: Total time spent is greater than 50% in coordination of care (as documented) at patient's floor/unit and/or counseling patient: Time with patient: 25 - 35 minutes
[2024-11-27 12:20] VITALS: BP 106/64; PULSE 83; RESP 18; TEMP 36.6; O2SAT 97
[2024-11-27 15:05] VITALS: BP 96/58; PULSE 79; RESP 18; TEMP 36.7; O2SAT 97
[2024-11-27 19:30] VITALS: BP 107/72; PULSE 86; RESP 18; TEMP 36.7; O2SAT 98
[2024-11-28] VITALS: BP 100/65; PULSE 81; RESP 18; TEMP 36.5; O2SAT 99
[2024-11-28] MEDS: HYDROcodone/APAP 5/325 TABLET 1 TAB PO (02:25)
[2024-11-28 04:00] VITALS: BP 110/74; PULSE 84; RESP 18; TEMP 36.6; O2SAT 99
[2024-11-28] MEDS: IBUPROFEN TAB 400 MG TABLET 800 MG PO (04:38)
--- NOTE | 2024-11-28 07:43 | PC.NURSE ---
[facility] referral faxed
[2024-11-28 08:15] VITALS: BP 96/59; PULSE 67; RESP 17; TEMP 36.5; O2SAT 99
[2024-11-28] MEDS: DIPHTH,PERTUSS(ACELL),TET VAC 0.5 ML SYR- ADULT IMi (08:43)
[2024-11-28] MEDS: DOCUSATE SOD 100 MG CAPSULE PO (08:43)
--- NOTE | 2024-11-28 09:55 | PC.SS ---
CORE LAYING MACHINE OPERATORNishi, met with patient [id number] to do initial assessment due to suffering from depression and anxiety. CORE LAYING MACHINE OPERATOR introduced herself, role in the agency, reason for visit, and discussed limits of confidentiality. Patient appeared alert and oriented to self, time, place, and situation. Patient appears stated age. Patient made good eye contact. Patient?s attitude appeared pleasant and cooperative. Patient?s behavior appeared ordinary. Patient?s mood appears ordinary. No signs of delusions or hallucinations. This is 38-year-old, monolingual, single, female who presented to the hospital to deliver her son, Howie. Patient verified her address and phone number. Patient resides in an apartment with her children (ages: 25 y/o, and 14 y/o). She reports being independent with all her ADLs, no DME use. Patient reports that prior to admission, she was unemployed. Patient receives [facility] and [facility]. Patient denies any history or current domestic violence. Patient denied any cases with child welfare services. Patient reported that in 2022, her from cirrhosis. Patient reported that after his , she became depressed and anxious. Patient reported using alcohol and cigarettes to cope with her mental health illnesses. Patient reported that she had 3 DUIs and had to go to shelter for a few months. 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 Patient reported that in 2022, she suffered from passive suicidal ideation; however, she never created a plan or intent to kill herself. Patient reported that she was referred to [facility] and her therapist is Mirta. Patient's next follow up appointment is on 12/16/2024 at 0900 AM. Patient denied any HI, SI, A/h or V/h. Patient reported that she has a van now for transportation. She has all the items for her baby (clothes and diapers). When medically clear, patient will go to her mother's house for 10 days, then transition home. Patient's sister, Treasure will pick her up. SW provided psychoeducation regarding baby blues and Post- Depression, as well as counseling groups at [facility]. Esther completed High Risk Referral.
--- NOTE | 2024-11-28 10:28 | PD.LDDS ---
DS: Providers Provider Date of admission: 11/26/24 09:44 Primary care physician: Physician No Primary/Family Admitting Provider: Stanton Anders MD Attending Provider on Admission: Stanton Anders MD Consults: 11/26/24 14:17 Referral Routine Comment: Attending Provider on DC: Danita Aguilera MD Discharging Provider: Danita Aguilera MD Anticipated date of discharge: 11/28/24 DS: Diagnosis Problem List Completed Was Problem List Reviewed/Reconciled?: Yes Summary/Hosp Course Brief History: Lucinda Burgess is a 38-year-old female, 4, para 2102, presenting for a repeat scheduled section at 38 weeks and 5 days gestation. She has a history of three previous sections and a prior stillbirth at 39 weeks. The patient started care at [facility]. Her risk factors include previous sections and gestational diabetes. On presentation, Lucinda reports no complaints. She notes good movement and denies any leakage of fluid or vaginal bleeding. Her current is at 38 weeks and 5 days gestation, and she is scheduled for a repeat section prior to 39w due to GDM and history of IUFD at 39w. She has a history of 3 previous sections and a stillbirth at 39 weeks. The patient has gestational diabetes in the current . Her surgical history includes three previous sections. Patient denies fever, chills, fatigue, vaginal bleeding, and leakage of fluid. Peripartum Data Delivery Method: Low Transverse Episiotomy Description: None complications: none Status at Discharge Cognitive/behavioral status at discharge: cooperative and appropriate Functional status at discharge: independent ambulation Overall status at discharge: patient is progressing back to baseline Time Spent with Patient Time attestation: Total time spent providing and/or coordinating discharge services: Exam Vital Signs Temp Pulse Resp BP Pulse Ox O2 Del Method 97.7 F 67 17 96/59 L 99 Room Air 11/28/24 08:15 11/28/24 08:15 11/28/24 08:15 11/28/24 08:15 11/28/24 08:15 11/28/24 08:15 Narrative Exam doing well /alertx 3 / mild anxiety Concern on bilateral pedal edema no calf tenderness and negative Gutierrez's sign Incision is C,D and intact BS present patient has passed flatus minimal lochia patient reassured voiding spontaneously and tolerating regular diet Will be discharged / She is reassured that the edema will resolve usually in 2 weeks and mostly by 6 weeks Discharge Plan Plan Patient Disposition: HOME (Self Care) Disposition Comment: stable Patient condition on transfer: Stable Prescriptions/Referrals Prescriptions/Med Rec: New hydrocodone-acetaminophen 5-325 mg tablet 1 tab PO Q6H MDD 4 PRN (Reason: pain) 7 Days Qty: 28 0RF docusate sodium [Stool Softener] 100 mg capsule 100 mg PO QDAY 30 Days Qty: 30 0RF ibuprofen 600 mg tablet 600 mg PO Q6H MDD 4 PRN (Reason: fever or pain) 10 Days Qty: 40 0RF Discontinued aspirin 81 mg tablet,delayed release (DR/EC) 81 mg PO QDAY Patient Comments: TAKE 2 TABLETS BY MOUTH DAILY ferrous sulfate [FeroSul] 325 mg (65 mg iron) tablet 325 mg PO QDAY Patient Comments: TAKE 1 TABLET BY MOUTH DAILY PNV cmb#95-ferrous fumarate-FA [] 28 mg iron- 800 mcg tablet 1 tab PO QDAY Patient Comments: TAKE 1 TABLET BY MOUTH DAILY Referrals: Stanton Anders MD [Physician] - No Primary/Family,Physician [Primary Care Provider] - Patient/Caregiver Discharge Instructions Discharge Activity: activity as tolerated Other Discharge Activity Instructions:: pelvic rest x 6 weeks Other Discharge Diet Instructions: regular and follow up her Ob provider in 1 to 2 weeks Education Materials: Breast Care After , C Section Dc Print Language: Upper Sorbian Activity Restrictions/Additional Instructions: follow up in one week for incision care pelvic rest for 6 weeks. Stand Alone Forms: Suzie Award Info., Patient Portal Info Letter Vaccines Vaccines Given During Stay: TDaP Discharge Order Discharge Orders: Discharge (Routine); Ordered 11/28/24 Ordered By: Danita Aguilera Planned Discharge Date 11/28/24
--- NOTE | 2024-11-28 10:44 | CHAP ---
Patient was visited by the Spiritual Care Volunteer who prayed for them. (Volunteer was in the hospital from 10:18-10:44)
== END 2024-11-28 14:05 | disposition home or self-care (01) | DRG 540 ==
LOC: S4SX 11:06 → S4NX 12:53
PROVIDERS: Admitting Provider Obstetrics & Gynecology; Visit Provider Obstetrics & Gynecology
DX: O34.211 Maternal care for low transverse scar from previous cesarean delivery (principal); O24.429 Gestational diabetes mellitus in childbirth, unspecified control; O69.81X0 Labor and delivery complicated by cord around neck, without compression, not applicable or unspecified; Z37.0 Single live birth; Z3A.38 38 weeks gestation of pregnancy; Z23 Encounter for immunization; Z87.59 Personal history of other complications of pregnancy, childbirth and the puerperium
CPT/HCPCS: 36415; 80307; 85025; 86780; 86850; 86900; 86901; 87491; 87591; 87661; 90715; J1885; J2250; J2274; J2371; J2405; J2590; J2765; J3010; J3490; J7120; A9270; J2270

== ENCOUNTER 2024-12-09 10:35 | Outpatient (AMB) | payer MEDICAID, SELFPAY ==
--- NOTE | 2024-12-09 10:41 | AMBOBPPN_ITS ---
Vital Signs 12/09/24 10:42 Weight 69.513 kg Weight Measurement Method Standing Scale BP 107/69 Blood Pressure Source Automatic Cuff Blood Pressure Location Right Upper Arm Position Sitting Respiration 17 Pulse 94 Pulse Source Monitor Temp 97.8 F Temp Source Temporal Artery Scan Pulse Oximetry (%) 95 Oxygen Delivery Method Room Air Allergies/Home Meds Allergies & Medications Allergies No Known Allergies Allergy (Verified 12/09/24 10:42) Intake Visit Data Collection New Patient or Established: Established Patient (seen at [facility] within 3 years) Reason for Visit:: POST Consent obtained for Telemed Visit: No Seen by Clinical Staff ONLY (RN/MA): No Financial Analysis Manager Required: No Do You Feel Safe at Home: Yes Authorities Contacted: N/A PCP or OBGYN visit in last 3 months: Yes Date of Last PCP or OBGYN visit: 11/28/24 Hx Now: No Are you currently on any form of Control: No Pain Present Currently: Yes Pain Location: Abdomen Pain scale:: 2 Smoking Status Smoking Status: Former smoker 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: Past Medical History Past Medical History: No Hx Neurological Disorders, No Hx Cardiac Disorders, No Hx Cancer, No Hx Blood Disorders, No Hx Gastrointestinal Disorders, No Hx Renal Disease, No Hx Diabetes Mellitus Type 1 and No Hx Diabetes Mellitus Type 2 Questionnaires Covid-19 Vaccine Questionnaire Has patient been vacinated for Covid-19 Have you been vacinated for Covid-19: No Social History Living Situation History Lives With: Family Housing: Apartment Tobacco History Smoking Status: Former smoker Second Hand Smoke Exposure: No Alcohol History Alcohol Intake: Former Alcohol Intake Frequency: holidays/special occasions only Domestic Abuse History Do You Feel Safe at Home: Yes EPDS - PP Depression Screening [place] Pospartum Depression Screen I have been able to laugh and see the funny side of things: (0) As much as I always could I have looked forward with enjoyment to things: (0) As much as I ever did I have blamed myself unnecessarily when things went wrong: (0) No, never I have been anxious or worried for no good reason: (0) No, not at all I have felt scared or panicky for no very good reason: (0) No, not at all Things have been getting on top of me: (0) No, I have been coping as well as ever I have been so unhappy that I have had difficulty sleeping: (0) No, not at all I have felt sad or miserable: (0) No, not at all I have been so unhappy that I have been crying: (0) No, never The thought of harming myself has occurred to me: (0) Never Care OB Visit Log OB Flowsheet Initial Weight: Not Recorded Date -?-?-?-?-?-?-?-?-?-?-?-?- EGA Weight BP Alb Glu CTX Pres Fundal ht FHR Mov Dilation Station Effacement Hx Notes Visit Note 11/12/24 -?-?-?-?-?-?-?-?-?-?-?-?- 36w 5d 76.204 kg 100/64 36 135 active at 36w5d, NAIMA 12/05/24. Transfer of care. Hx 3 prior C/S, 1 stillbirth at 39w. GDM diet-controlled (fasting BG 86-103). Reports good FM. Current US shows EFW 3446g (7lb 10oz), breech presentation. FHR 135 Gabriel edule C/S 11/21 or 11/22/24 (38w), BIW NST/US at hospital, weekly visits, kick counts TID, continue diet control for GDM, FU 1 week. Precautions for decreased FM reviewed. 11/17/24 -?-?-?-?-?-?-?-?-?-?-?-?- 37w 3d 75.92 kg 106/70 occasional cephalic 38 141 active No CTX/LOF/VB, good FM. Reports sharp pulling sensations at night x2 days, improve with rest, possibly prodromal CTX. FHR 141. Scheduled C/S for 11/26 at 7:30 AM; NPO after 10 PM, check in 5:30 AM via ER gate. No further appts; advised L&D eval if symptoms worsen NAIMA Calculator Estimated Delivery Date Method Current WG Current Estimate 12/05/24 Ultrasound #1 40w 4d Other Estimates 01/01/25 LMP (Certain) 36w 5d Specific Issue/Plans Diagnostic Test Results and Labs: - Ultrasound (07/05/2024): Consistent with 18 weeks and 7 days gestation, NAIMA 12/05/2024 - Urine culture (08/05/2024): Positive (coagulase-negative staph) - NiPT (08/06/2024): Negative - Hepatitis B (08/06/2024): Negative - Antibody screen (08/06/2024): Negative - HIV (08/06/2024): Negative - RPR (08/06/2024): Non-reactive - Rubella (08/06/2024): Immune - Blood type (08/06/2024): AB positive - CBC (08/06/2024): Hemoglobin 10.4 g/dL, Platelets 245 - Detailed anatomy ultrasound (09/17/2024): Within normal limits - Cervical length (09/17/2024): 5.13 cm - position (09/17/2024): Breech - Uterus and adnexa (09/17/2024): Normal - Placenta (09/17/2024): Anterior fundal, normal appearance without suspicion for accreta - Ultrasound (11/12/2024): Estimated weight 3446 grams (7 pounds 10 ounces), heart rate 135 bpm HPI Interval History: 38-year-old 4 para para 4 for 2-week postop visit patient was a repeat November 26, 2024. This was her fourth . Patient still wants to get a tubal ligation. Cultures were done and they were negative for gonorrhea chlamydia and trichomoniasis. Patient had a baby boy weighing 8 pounds 1. She is bottlefeeding. Reports that she is happy and no signs of depression. She has help from her family and older children. Siblings are adjusting. Denies any dysuria or signs or symptoms of infection. History of gestational diabetes of the . Was or delivery considered high risk: Yes Delivery type: (x4) Was labor induced: no Gestational age at delivery (weeks): 39 Delivery date: 11/26/24 Delivering provider: Chago Delivery complications: No Is patient : No Is patient sexually active: No Contraception planned: BTL Review of Systems Review of Systems ROS limited to current 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 complaints: Yes Exam Narrative Physical exam: Euthyroid. Both breasts are soft no signs of mastitis. Fundus firm below the umbilicus. Uterus well involuted. Low transverse skin incision is intact. No redness no signs of infection. The dressing was removed. Small lochia. Negative Homans' sign. 2+ DTRs no signs of phlebitis. Office Procedures OB Clinic LOC & Office Proc's Nursing/Assessment Patient Status: Established Patient OB Clinic Nursing Assessment: Medication Reconciliation, Update PMH in EMR and Vital Signs OB Clinic Coordination of Care: Complex Care and Chronic Disease 1-5, Consent,records obtained, informed consent, Education Simp Pt/Fam and 4+ Authorizations needed Established Patient Charge Established Patient Point Assignment: 100 Post Follow-up Visit Post Follow up Visit: Yes Assessment & Plan Diagnosis / Problem List (1) 2 weeks follow-up: Status: Acute Plan Discussed the need for no heavy lifting and increasing rest. Increase fluids. Patient should allow help from her family. Discussed signs symptoms of infection and danger signs. Okay to continue with Tylenol or ibuprofen for discomfort. Continue prenatals. Discussed wound care and keeping the incision dry. Return with OB in 4 weeks for 6-week visit Care Reviewed delivery summary and any complications: Yes Uterus involuted to: 2 bekow Perineal / incision healing noted: Yes Screened for depression: Yes Depression counseling provided: No Discussed family planning & contraception: Yes Contraception planned: BTL Counseling on safe resumption of sexual activity: Yes Counseling on gradual excercise: Yes Discussed and concerns (describe), provided support: No Referred to information assurance specialist: No Counseled on good nutrition, hydration, and self care: Yes Chronic & current problems reconciled on problem list: Yes Additional follow up plans: Patient needs a 2-hour GTT at 6-week visit. No sex for now. Follow-up with OB to schedule tubal ligation Follow up: routine/prn
[2024-12-09 10:42] VITALS: BP 107/69; PULSE 94; RESP 17; TEMP 36.6; O2SAT 95
== END 2024-12-09 11:00 | disposition home or self-care (01) ==
LOC: HODSOBC 10:35
PROVIDERS: Supervising Provider Advanced Practice Midwife; Visit Provider Advanced Practice Midwife
DX: Z39.2 Encounter for routine postpartum follow-up (principal); Z87.891 Personal history of nicotine dependence

== ENCOUNTER 2025-01-06 10:04 | Outpatient (AMB) | payer MEDICAID, SELFPAY ==
[2025-01-06 10:23] VITALS: BP 108/66; PULSE 76; RESP 15; TEMP 36.6; O2SAT 96; BMI 27.8
--- NOTE | 2025-01-06 10:23 | AMBOBPPN_ITS ---
Vital Signs 01/06/25 10:23 Height 1.57 m Height Method Stated Weight 69.059 kg Weight Measurement Method Standing Scale BMI 27.8 BP 108/66 Blood Pressure Source Automatic Cuff Blood Pressure Location Left Upper Arm Position Sitting Respiration 15 Pulse 76 Pulse Source Monitor Temp 97.8 F Temp Source Oral Pulse Oximetry (%) 96 Oxygen Delivery Method Room Air Allergies/Home Meds Allergies & Medications Allergies No Known Allergies Allergy (Verified 01/06/25 10:24) Medication Reconciliation No Known Home Medications 01/06/25 [History Confirmed 01/06/25] Intake Visit Data Collection New Patient or Established: Established Patient (seen at [facility] within 3 years) Reason for Visit:: Seen by Clinical Staff ONLY (RN/MA): No Accounts Payable Bookkeeper Required: No Do You Feel Safe at Home: Yes Authorities Contacted: N/A PCP or OBGYN visit in last 3 months: Yes Hx Now: No Are you currently on any form of Control: No Pain Present Currently: No Pain Scale Used: Cantor-Torres/Numerical Pain scale:: 0 Smoking Status Smoking Status: Former smoker 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: Past Medical History Past Medical History: No Hx Neurological Disorders, No Hx Cardiac Disorders, No Hx Cancer, No Hx Blood Disorders, No Hx Gastrointestinal Disorders, No Hx Renal Disease, No Hx Diabetes Mellitus Type 1 and No Hx Diabetes Mellitus Type 2 Questionnaires Covid-19 Vaccine Questionnaire Has patient been vacinated for Covid-19 Have you been vacinated for Covid-19: Yes Social History Living Situation History Lives With: Family Housing: Apartment Tobacco History Smoking Status: Former smoker Second Hand Smoke Exposure: No Alcohol History Alcohol Intake: Former Alcohol Intake Frequency: holidays/special occasions only Domestic Abuse History Do You Feel Safe at Home: Yes EPDS - PP Depression Screening [place] Pospartum Depression Screen I have been able to laugh and see the funny side of things: (0) As much as I always could I have looked forward with enjoyment to things: (0) As much as I ever did I have blamed myself unnecessarily when things went wrong: (0) No, never I have been anxious or worried for no good reason: (0) No, not at all I have felt scared or panicky for no very good reason: (0) No, not at all Things have been getting on top of me: (0) No, I have been coping as well as ever I have been so unhappy that I have had difficulty sleeping: (0) No, not at all I have felt sad or miserable: (0) No, not at all I have been so unhappy that I have been crying: (0) No, never The thought of harming myself has occurred to me: (0) Never Total Score: EPDS Score: Referral is indicated for score of 9 or more, suicidal, or if provider believes patient is depressed regardless of score.: 0 EPDS completed yes Care OB Visit Log OB Flowsheet Initial Weight: Not Recorded Date -?-?-?-?-?-?-?-?-?-?-?-?- EGA Weight BP Alb Glu CTX Pres Fundal ht FHR Mov Dilation Station Effacement Hx Notes Visit Note 11/12/24 -?-?-?-?-?-?-?-?-?-?-?-?- 36w 5d 76.204 kg 100/64 36 135 active at 36w5d, NAIMA 12/05/24. Transfer of care. Hx 3 prior C/S, 1 stillbirth at 39w. GDM diet-controlled (fasting BG 86-103). Reports good FM. Current US shows EFW 3446g (7lb 10oz), breech presentation. FHR 135 Gabriel edule C/S 11/21 or 11/22/24 (38w), BIW NST/US at hospital, weekly visits, kick counts TID, continue diet control for GDM, FU 1 week. Precautions for decreased FM reviewed. 11/17/24 -?-?-?-?-?-?-?-?-?-?-?-?- 37w 3d 75.92 kg 106/70 occasional cephalic 38 141 active No CTX/LOF/VB, good FM. Reports sharp pulling sensations at night x2 days, improve with rest, possibly prodromal CTX. FHR 141. Scheduled C/S for 11/26 at 7:30 AM; NPO after 10 PM, check in 5:30 AM via ER gate. No further appts; advised L&D eval if symptoms worsen NAIMA Calculator Estimated Delivery Date Method Current WG Current Estimate 12/05/24 Ultrasound #1 44w 4d Other Estimates 01/01/25 LMP (Certain) 40w 5d Specific Issue/Plans Diagnostic Test Results and Labs: - Ultrasound (07/05/2024): Consistent with 18 weeks and 7 days gestation, NAIMA 12/05/2024 - Urine culture (08/05/2024): Positive (coagulase-negative staph) - NiPT (08/06/2024): Negative - Hepatitis B (08/06/2024): Negative - Antibody screen (08/06/2024): Negative - HIV (08/06/2024): Negative - RPR (08/06/2024): Non-reactive - Rubella (08/06/2024): Immune - Blood type (08/06/2024): AB positive - CBC (08/06/2024): Hemoglobin 10.4 g/dL, Platelets 245 - Detailed anatomy ultrasound (09/17/2024): Within normal limits - Cervical length (09/17/2024): 5.13 cm - position (09/17/2024): Breech - Uterus and adnexa (09/17/2024): Normal - Placenta (09/17/2024): Anterior fundal, normal appearance without suspicion for accreta - Ultrasound (11/12/2024): Estimated weight 3446 grams (7 pounds 10 ounces), heart rate 135 bpm HPI Interval History: 39-year-old 4 para 4. Repeat x 4 for 6-week . Patient had a repeat November 26, 2024. A baby boy weighing 8 pounds 1 bottlefeeding. Happy. Siblings are adjusting. Father the baby is involved. Patient has good support at home. Patient plans to have a tubal ligation. History of GDM with the . 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 Lungs clear no wheezes. Abdomen is soft nontender. Uterus well involuted. Perineum is intact no lacerations. No swelling. Small lochia. Negative Homans' sign. 2+ DTRs. No edema no swelling. Breasts are soft, low transverse incision, dry, intact, no redness. uterus slight tender to palpation General Limitations: no limitations General Appearance: alert, in no apparent distress, comfortable, cooperative, healthy appearing, well developed and well groomed Head Head exam: atraumatic, normocephalic and normal inspection ENT ENT exam: Present normal exam, normal oropharynx and mucous membranes moist Chest Chest inspection: Present normal inspection and symmetric chest wall rise Resp Respiratory exam: Present normal lung sounds bilaterally Card Cardiovascular exam: Present regular rate, normal rhythm and normal heart sounds Abdominal Abdominal exam: Present soft and normal bowel sounds Psych Psychiatric exam: Present normal affect and normal mood Office Procedures OB Clinic LOC & Office Proc's Nursing/Assessment Patient Status: Established Patient OB Clinic Nursing Assessment: Medication Reconciliation, Update PMH in EMR and Vital Signs OB Clinic Coordination of Care: Complex Care and Chronic Disease 1-5, Consen t,records obtained, informed consent, Education Simp Pt/Fam, 1 Ins Authorization, Lab and Imaging orders, Results/Orders obtained and Staff clarify orders Established Patient Charge Established Patient Point Assignment: 120 Post Follow-up Visit Post Follow up Visit: Yes Assessment & Plan Diagnosis / Problem List (1) 6 weeks follow-up: Status: Acute Plan Condoms for contraception for now. Schedule with OB for tubal ligation. Discussed comfort measures for incision pain. And I discussed wound care. Keep incision dry and clean. Okay for abdominal support,. Patient okay to walk and light exercise. Return with OB to schedule tubal. 2 hr glucose for + hx of GDM Care Reviewed delivery summary and any complications: Yes Uterus involuted to: 3 below Perineal / incision healing noted: Yes Screened for depression: Yes Depression counseling provided: No Discussed family planning & contraception: Yes Contraception planned: BTL Counseling on safe resumption of sexual activity: Yes Counseling on gradual excercise: Yes Discussed and concerns (describe), provided support: Yes Referred to insurance marketing specialist: No Counseled on good nutrition, hydration, and self care: Yes Reviewed vaccine status: No Chronic & current problems reconciled on problem list: No Infant care discussed; questions answered: feeding Follow up: routine/prn
== END 2025-01-06 11:10 | disposition home or self-care (01) ==
LOC: HODSOBC 10:04
PROVIDERS: Supervising Provider Advanced Practice Midwife; Visit Provider Advanced Practice Midwife
DX: Z39.2 Encounter for routine postpartum follow-up (principal); Z87.891 Personal history of nicotine dependence; Z86.32 Personal history of gestational diabetes; Z30.09 Encounter for other general counseling and advice on contraception
CPT/HCPCS: 99214; Z1038; G0463

== ENCOUNTER 2025-01-28 09:18 | Outpatient (AMB) | payer MEDICAID, SELFPAY ==
[2025-01-28 09:35] VITALS: BP 122/74; PULSE 88; RESP 18; TEMP 36.6; O2SAT 96; BMI 28.5
--- NOTE | 2025-01-28 09:35 | AMBOBPPN_ITS ---
Vital Signs 01/28/25 09:35 Height 1.57 m Height Method Stated Weight 70.364 kg Weight Measurement Method Standing Scale BMI 28.5 BP 122/74 Blood Pressure Source Automatic Cuff Blood Pressure Location Left Upper Arm Position Sitting Respiration 18 Pulse 88 Pulse Source Monitor Temp 97.9 F Temp Source Oral Pulse Oximetry (%) 96 Oxygen Delivery Method Room Air Allergies/Home Meds Allergies & Medications Allergies No Known Allergies Allergy (Verified 01/28/25 09:36) Medication Reconciliation No Known Home Medications 01/06/25 [History Confirmed 01/28/25] Intake Visit Data Collection New Patient or Established: Established Patient (seen at [facility] within 3 years) Reason for Visit:: FOLLOW UP Seen by Clinical Staff ONLY (RN/MA): No Director Sales Training Required: No Do You Feel Safe at Home: Yes Authorities Contacted: N/A PCP or OBGYN visit in last 3 months: Yes Hx Now: No Are you currently on any form of Control: No Pain Present Currently: Yes Pain Location: Abdomen (LOWER ABDOMEN) Pain Scale Used: Cantor-Torres/Numerical Pain scale:: 2 Smoking Status Smoking Status: Former smoker 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: Past Medical History Past Medical History: No Hx Neurological Disorders, No Hx Cardiac Disorders, No Hx Cancer, No Hx Blood Disorders, No Hx Gastrointestinal Disorders, No Hx Renal Disease, No Hx Diabetes Mellitus Type 1 and No Hx Diabetes Mellitus Type 2 Questionnaires Covid-19 Vaccine Questionnaire Has patient been vacinated for Covid-19 Have you been vacinated for Covid-19: Yes Social History Living Situation History Lives With: Family Housing: Apartment Tobacco History Smoking Status: Former smoker Second Hand Smoke Exposure: No Alcohol History Alcohol Intake: Former Alcohol Intake Frequency: holidays/special occasions only Domestic Abuse History Do You Feel Safe at Home: Yes EPDS - PP Depression Screening [place] Pospartum Depression Screen I have been able to laugh and see the funny side of things: (0) As much as I always could I have looked forward with enjoyment to things: (0) As much as I ever did I have blamed myself unnecessarily when things went wrong: (0) No, never I have been anxious or worried for no good reason: (0) No, not at all I have felt scared or panicky for no very good reason: (0) No, not at all Things have been getting on top of me: (0) No, I have been coping as well as ever I have been so unhappy that I have had difficulty sleeping: (0) No, not at all I have felt sad or miserable: (0) No, not at all I have been so unhappy that I have been crying: (0) No, never The thought of harming myself has occurred to me: (0) Never EPDS completed yes HPI Interval History: Lucinda Burgess presents for consultation regarding surgical sterilization. She underwent a on November 26, 2024, and is now seeking a laparoscopic tubal ligation. The patient reports no new complaints at this visit. She expresses a desire to return to work. Lucinda has been informed about the laparoscopic procedure, which involves three small keyhole incisions and laparoscopic self-injection. The patient understands that an insurance authorization will be placed today, and she will be notified when it is approved. She is a female patient with an obstetric history of G1 T1 L1. She delivered via on November 26, 2024. The patient wants to return to work. 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 Exam General General Appearance: alert, in no apparent distress and healthy appearing Head Head exam: atraumatic Neck Neck exam: Present normal inspection and trachea midline Chest Chest inspection: Present normal inspection and symmetric chest wall rise External exam: Present normal external exam; Absent tenderness Neuro Neurological exam: Present oriented X3 Psych Psychiatric exam: Present normal affect and normal mood Assessment & Plan Diagnosis / Problem List (1) Encounter for sterilization: Status: Acute Plan Desire for surgical sterilization: - Patient had a on 11/26/2024 and is now seeking permanent contraception through laparoscopic tubal ligation. - No new complaints reported. - Patient expresses readiness to return to work. Plan: - Submit insurance authorization for laparoscopic tubal ligation procedure today. - Inform patient when authorization is approved. - Educate patient on laparoscopic procedure: ? 3 small keyhole incisions ? Laparoscopic self-injection technique - Proceed with scheduling procedure once insurance authorization is obtained.
== END 2025-01-28 09:58 | disposition home or self-care (01) ==
LOC: HODSOBC 09:18
PROVIDERS: Supervising Provider Advanced Practice Midwife; Visit Provider Advanced Practice Midwife
DX: Z30.2 Encounter for sterilization (principal); Z87.891 Personal history of nicotine dependence
CPT/HCPCS: 59430

== ENCOUNTER → 2025-04-20 | Outpatient (CLI) | payer MEDICAID, SELFPAY ==
[2025-04-20 08:52] VITALS: BMI 29.9
[2025-04-20 10:14] LABS: Basophils # (Auto) 0.0 Thou/mm3 (0.0-0.2); Basophils % (Auto) 1 % (0-2.5); Eosinophils # (Auto) 0.4 Thou/mm3 (0.0-0.5); Eosinophils % (Auto) 10 % (0-10); Hematocrit 38.2 % (36.0-46.0); Hemoglobin 12.7 g/dL (12.0-16.0); Immature Granulocytes Auto 0.01 Thou/mm3 (0.00-0.00); Lymphocytes # (Auto) 1.2 Thou/mm3 (1.0-4.8); Lymphocytes % (Auto) 27 % (10-50); Mean Corpuscular HGB Conc 33.2 g/dl (31.0-37.0); Mean Corpuscular Hemoglobin 29.7 pg (25.0-35.0); Mean Corpuscular Volume 90 fL (80-100); Monocytes # (Auto) 0.3 Thou/mm3 (0.0-0.8); Monocytes % (Auto) 7 % (0-12); Neutrophils # (Auto) 2.3 Thou/mm3 (1.8-7.7); Neutrophils % (Auto) 54 % (37-80); Nucleated Red Blood Cell # 0.00 Thou/mm3 (0.00-0.00); Nucleated Red Blood Cell % 0 /100 WBC (0); Platelet Count 275 Thou/mm3 (140-440); RDW Standard Deviation 40.9 fL (36.4-46.3); Red Blood Count 4.27 Miln/mm3 (4.00-5.20); White Blood Count 4.3 Thou/mm3 (3.6-11.0)
[2025-04-20 10:34] LABS: Alanine Aminotransferase 11 U/L (10-49); Albumin, Serum 4.6 gm/dL (3.5-5.0); Albumin/Globulin Ratio 1.4 (1.2-2.2); Alkaline Phosphatase 52 U/L (46-116); Anion Gap 9 (7-16); Aspartate Amino Transferase 18 U/L (0-34); BUN/Creatinine Ratio 10 Ratio (12-20); Bilirubin,Total 0.3 mg/dL (0.3-1.2); Blood Urea Nitrogen 7 mg/dL (9-23); Calcium 9.3 mg/dL (8.3-10.6); Calcium (Corrected) 9.3 mg/dL (8.5-10.1); Carbon Dioxide 29.4 mMol/L (20.0-31.0); Chloride 103 mMol/L (98-107); Creatinine (Component) 0.7 mg/dL (0.6-1.3); Estimated Creatinine Clearance 92.1 mL/min (>60); Globulin 3.2 gm/dL (2.3-3.5); Glucose 82 mg/dL (74-106); Osmolality,Calculated 278 (275-295); Potassium 3.4 mMol/L (3.4-5.1); Sodium 141 mMol/L (136-145); Total Protein 7.8 gm/dL (5.7-8.2); eGFR > 60 See Note
[2025-04-20 10:36] LABS: HCG,Qualitative Serum Negative
== END | disposition home or self-care (01) ==
LOC: SLAB 04-22 07:12
PROVIDERS: PCP Family Medicine; Referring Provider Obstetrics & Gynecology; Visit Provider Obstetrics & Gynecology
DX: Z30.2 Encounter for sterilization (principal)
CPT/HCPCS: 36415; 80053; 84703; 85025; 86850; 86900; 86901